=== PATIENT | female | born 1990 | race Caucasian/White ===

== ENCOUNTER 2020-08-22 13:08 | Outpatient (CLI) | payer SELFPAY ==
[2020-08-22] MEDS ORDERED: LACTATED RINGERS 1,000 ML ONE ×2 (13:15→14:30)
[2020-08-22] MEDS ORDERED: fentaNYL 100 MCG/2 ML INJ IV ONE ×2 (13:15→14:29)
[2020-08-22] MEDS ORDERED: ONDANSETRON 4 MG/2 ML INJ IV PRN ×2 (13:16→15:22)
[2020-08-22] MEDS ORDERED: LACTATED RINGERS 1,000 ML IV SCH ×2 (14:45→15:15)
[2020-08-22] MEDS ORDERED: fentaNYL 100 MCG/2 ML INJ IV PRN (15:11)
[2020-08-22] MEDS ORDERED: LIDOCAINE (2%) 20 MG/1 ML VIAL 20 ML MDV INFILTRATI ONE (15:11)
[2020-08-22] MEDS ORDERED: NalbUPHINE 10 MG/1 ML INJ IV PRN (15:11)
[2020-08-22] MEDS ORDERED: MINERAL OIL 30 ML ORAL LIQD PO PRN (15:11)
[2020-08-22] MEDS ORDERED: NALOXONE 0.4 MG/1 ML INJ IV PRN ×2 (15:21→15:22)
[2020-08-22] MEDS ORDERED: HYDROmorphone/NS 6 MG/30 ML PCA INJ IV SCH (16:00)
[2020-08-22] MEDS ORDERED: OXYTOCIN DRIP 30 UNITS/500 ML BAG IV SCH (16:00)
[2020-08-22] MEDS ORDERED: FENTANYL IV SCH (16:00)
--- NOTE | 2020-08-22 16:35 | Ultrasound Report ---
ULTRASOUND RENAL INDICATION: with right flank pain. COMPARISON: No relevant prior imaging study available. FINDINGS: RIGHT KIDNEY: Size: 12.0 x 5.7 cm. Echogenicity: Normal. Cortical thickness: Normal, 1.8 cm. Hydronephrosis: Mild. Cyst or mass: None. Stones: None. LEFT KIDNEY: Size: 11.7 x 6.4 cm. Echogenicity: Normal. Cortical thickness: Normal, 2.1 cm. Hydronephrosis: None. Cyst or mass: None. Stones: None. Urinary Bladder: No significant abnormality. Free Fluid: None. Additional Findings: None. IMPRESSION 1. Mild right hydronephrosis without visualization of an obstructive stone. This finding could be due to the patient's . 2. No significant sonographic abnormality of the left kidney. Signer Name: Bryan Vazquez MD Signed: 08/22/2020 4:31 PM Workstation Name: [id number]
--- NOTE | 2020-08-22 16:38 | Ultrasound Report ---
ULTRASOUND OBSTETRIC LIMITED INDICATION / CLINICAL INFORMATION: Evaluate amniotic fluid index and presentation as well as placenta. COMPARISON: None available. FINDINGS: AMNIOTIC FLUID INDEX (cm) = 14.4 PRESENTATION: Cephalic. A presenting hand is seen near the baby's head on this study. HEART RATE (beats per minute): 143 ADDITIONAL FINDINGS: The placenta is grade 1 and located anteriorly with an expected appearance. IMPRESSION: Single live intrauterine as above. Signer Name: Bryan Vazquez MD Signed: 08/22/2020 4:33 PM Workstation Name: [id number]
[2020-08-22 18:23] LABS: Basophils % (Auto) 0.2 % (0.0-1.8); Eosinophils % (Auto) 0.1 % (0.0-4.3); Hematocrit 37.4 % (30.3-42.9); Hemoglobin 12.7 gm/dl (10.1-14.3); Lymphocytes # (Auto) 1.4 K/mm3 (1.2-5.4); Lymphocytes % (Auto) 13.9 % (13.4-35.0); Mean Corpuscular HGB Conc 34 % (30-34); Mean Corpuscular Volume 90 fl (79-97); Monocytes # (Auto) 0.3 K/mm3 (0.0-0.8); Monocytes % (Auto) 2.5 % (0.0-7.3); Platelet Count 179 K/mm3 (140-440); Red Blood Count 4.14 M/mm3 (3.65-5.03); Red Cell Distribution Width 13.5 % (13.2-15.2)
[2020-08-22 18:37] LABS: Bilirubin,Urine NEG (Negative); Blood,Urine LG (Negative); Color,Urine Yellow (Yellow); Mucus,Urine FEW /HPF; Protein,Urine <15 mg/dL mg/dL (Negative); Urobilinogen,Urine < 2.0 mg/dL (<2.0)
[2020-08-22 18:45] LABS: Alanine Aminotransferase 16 units/L (7-56); Albumin 3.3 g/dL (3.9-5); Blood Urea Nitrogen 6 mg/dL (7-17); Calcium 9.4 mg/dL (8.4-10.2); Hemolysis Index 4
[2020-08-22 18:50] LABS: BUN/Creatinine Ratio 20
[2020-08-22 19:28] VITALS: BP 108/66
== END 2020-08-22 21:06 | disposition home or self-care (01) ==
LOC: LD 13:08 → TRG 13:08 → APU 13:09 → TRG 21:06
PROVIDERS: ATTEND Obstetrics & Gynecology
DX: O99.891 Other specified diseases and conditions complicating pregnancy (principal); N13.30 Unspecified hydronephrosis; O47.03 False labor before 37 completed weeks of gestation, third trimester; Z3A.30 30 weeks gestation of pregnancy
CPT/HCPCS: 36415; 59025; 76770; 76815; 80053; 81001; 85025; 86850; 86900; 86901; 96374; 96375; 96376; J2405; J3010; J7120; 96360; 96361; J1170

== ENCOUNTER 2020-10-09 11:11 | Outpatient (CLI) | payer MEDICAID, OTHER ==
[2020-10-09] MEDS ORDERED: LACTATED RINGERS 1,000 ML IV ONE ×2 (13:26→13:30)
[2020-10-09] MEDS ORDERED: TERBUTALINE 1 MG/1 ML INJ SUB-Q ONE (13:30)
[2020-10-09 14:56] VITALS: BP 112/71
== END 2020-10-09 15:37 | disposition home or self-care (01) ==
LOC: TRG 11:11 → APU 11:12 → TRG 15:37
PROVIDERS: ATTEND Obstetrics & Gynecology
DX: O26.853 Spotting complicating pregnancy, third trimester (principal); O47.03 False labor before 37 completed weeks of gestation, third trimester; Z3A.37 37 weeks gestation of pregnancy
CPT/HCPCS: 59025; 96360; 96361; 96372; J3105; J7120

== ENCOUNTER 2022-02-14 04:13 | Emergency (ER) | payer MEDICAID ==
[2022-02-14 04:41] LABS: Basophils % (Auto) 0.1 % (0.0-1.8); Eosinophils # (Auto) 0.2 K/mm3 (0.0-0.4); Hematocrit 40.7 % (30.3-42.9); Hemoglobin 13.4 gm/dl (10.1-14.3); Lymphocytes # (Auto) 2.6 K/mm3 (1.2-5.4); Lymphocytes % (Auto) 25.2 % (13.4-35.0); Mean Corpuscular HGB Conc 33 % (30-34); Mean Corpuscular Volume 84 fl (79-97); Monocytes # (Auto) 0.6 K/mm3 (0.0-0.8); Monocytes % (Auto) 5.8 % (0.0-7.3); Platelet Count 255 K/mm3 (140-440); Red Blood Count 4.82 M/mm3 (3.65-5.03); Red Cell Distribution Width 14.5 % (13.2-15.2)
[2022-02-14 04:59] LABS: Alanine Aminotransferase 21 units/L (7-56); Albumin 4.5 g/dL (3.9-5); Blood Urea Nitrogen 14 mg/dL (7-17); Hemolysis Index 8
[2022-02-14 05:35] LABS: BUN/Creatinine Ratio 28
[2022-02-14] MEDS ORDERED: MAGNESIUM HYDROXIDE (MOM) ORAL LIQD UDC PO ONE (10:05)
[2022-02-14 10:32] LABS: Mucus,Urine FEW /HPF
[2022-02-14 10:37] LABS: Color,Urine Yellow (Yellow)
--- NOTE | 2022-02-14 11:08 | Ultrasound Report ---
LIMITED RUQ ABDOMINAL ULTRASOUND INDICATION: RUQ pain. COMPARISON: No relevant prior imaging study available. FINDINGS: Pancreas: Visualized portions show no significant abnormality. Abdominal Aorta: No significant abnormality. IVC: No significant abnormality. Liver: The liver measures 15.4 cm in length. The liver parenchyma is echogenic consistent with steat osis. Normal hepatopedal blood flow in the main portal vein. Gallbladder: No significant abnormality. Bile ducts: No significant abnormality. Common bile duct measures 4 mm. Right kidney: No significant abnormality visualized. Free fluid: None. Additional Findings: None. IMPRESSION: Hepatic steatosis. Signer Name: Brandon Hdz Jr, MD Signed: 02/14/2022 11:03 AM Workstation Name: [id number]
--- NOTE | 2022-02-14 12:09 | Emergency Department Report ---
ED Abdominal Pain HPI - General Chief Complaint: Abdominal Pain Stated Complaint: stomach pain PUI?: No Time Seen by Provider: 02/14/22 09:08 Source: patient Mode of arrival: Ambulatory Limitations: No Limitations - History of Present Illness Initial Comments: Patient is a 31-year-old female presents complaining of intermittent epigastric and right upper quadrant pain for several weeks. This episode started yesterday and radiates to the right flank area. She has had some nausea and loose stools. She does state the pain is worse after a fatty meal. Denies fevers chills or vomiting. Severity scale (0 -10): 8 Associated Symptoms: nausea, diarrhea. denies: vomiting, fever, chills, constipation, dysuria, hematemesis, hematochezia, melena, hematuria, anorexia, syncope - Related Data Previous Rx's Medication Instructions Recorded Last Taken Type Ferrous Sulfate [Feosol 325 MG tab] 325 mg PO BID #60 tablet 11/08/15 Unknown Rx HYDROcodone/APAP 5-325 [Brinson 1 each PO Q6HR PRN #30 tablet 11/08/15 Unknown Rx 5/325] Ibuprofen [Motrin] 800 mg PO Q8HR PRN #30 tablet 11/08/15 Unknown Rx Vit Calc,Iron,Folic 1 each PO DAILY #30 tablet 11/08/15 Unknown Rx [ Vitamins] Omeprazole 20 mg PO DAILY #30 tab 02/14/22 Unknown Rx Allergies Allergy/AdvReac Type Severity Reaction Status Date / Time No Known Allergies Allergy Verified 11/07/15 15:34 ED Review of Systems ROS: Stated complaint: SEVERE STOMACH PAIN Other details as noted in HPI Constitutional: denies: chills, fever Eyes: denies: eye pain, eye discharge, vision change ENT: denies: ear pain, throat pain Respiratory: denies: cough, shortness of breath, wheezing Cardiovascular: denies: chest pain, palpitations Endocrine: no symptoms reported Gastrointestinal: as per HPI Genitourinary: denies: urgency, dysuria, discharge Musculoskeletal: denies: back pain, joint swelling, arthralgia Skin: denies: rash, lesions Neurological: denies: headache, weakness, paresthesias Psychiatric: denies: anxiety, depression Hematological/Lymphatic: denies: easy bleeding, easy bruising ED Past Medical Hx - Past Medical History Previous Medical History?: No Hx Hypertension: No Hx Congestive Heart Failure: No Hx Diabetes: No Hx Deep Vein Thrombosis: No Hx Renal Disease: No Hx Sickle Cell Disease: No Hx Seizures: No Hx Asthma: No Hx COPD: No Hx HIV: No - Surgical History Past Surgical History?: No - Social History Smoking Status: Never Smoker - Medications Home Medications: Home Medications Medication Instructions Recorded Confirmed Last Taken Type Ferrous Sulfate [Feosol 325 MG tab] 325 mg PO BID #60 tablet 11/08/15 Unknown Rx HYDROcodone/APAP 5-325 [Brinson 1 each PO Q6HR PRN #30 tablet 11/08/15 Unknown Rx 5/325] Ibuprofen [Motrin] 800 mg PO Q8HR PRN #30 tablet 11/08/15 Unknown Rx Vit Calc,Iron,Folic 1 each PO DAILY #30 tablet 11/08/15 Unknown Rx [ Vitamins] Omeprazole 20 mg PO DAILY #30 tab 02/14/22 Unknown Rx ED Physical Exam - General Limitations: No Limitations General appearance: alert, in no apparent distress - Head Head exam: Present: atraumatic, normocephalic - Eye Eye exam: Present: normal appearance - ENT ENT exam: Present: mucous membranes moist - Neck Neck exam: Present: normal inspection - Respiratory Respiratory exam: Present: normal lung sounds bilaterally. Absent: respiratory distress - Cardiovascular Cardiovascular Exam: Present: regular rate, normal rhythm. Absent: systolic murmur, diastolic murmur, rubs, gallop - GI/Abdominal GI/Abdominal exam: Present: soft, tenderness (Right upper quadrant with positive Garcia's), normal bowel sounds. Absent: distended, rebound, rigid, organomegaly, bruit - Extremities Exam Extremities exam: Present: normal inspection - Back Exam Back exam: Present: normal inspection - Neurological Exam Neurological exam: Present: alert, oriented X3 - Psychiatric Psychiatric exam: Present: normal affect, normal mood - Skin Skin exam: Present: warm, dry, intact, normal color. Absent: rash ED Course Vital Signs 02/14/22 02/14/22 04:19 12:41 Temperature 97.8 F 98.4 F Pulse Rate 92 H 83 Respiratory 15 18 Rate Blood Pressure 112/61 97/62 [Left] O2 Sat by Pulse 100 99 Oximetry - Reevaluation(s) Reevaluation #1: 02/14/22 12:12 Patient abdominal pain resolved with milk of mag. Abdominal exams throughout stay are improved. She remains non-toxic appearing and comfortable on discharge. 02/14/22 20:57 ED Medical Decision Making - Lab Data Result diagrams: 02/14/22 04:24 02/14/22 04:24 - Radiology Data Radiology results: report reviewed This is a 31-year-old female with right upper quadrant abdominal pain. Exam is benign. Blood work is normal. Ultrasound shows fatty liver no gallstones. Patient had improvement with milk of mag. Will provide primary care and gastroenterology follow-up as well as omeprazole. Ultrasound Report Signed Patient: ADAM GUNTER R#: [id number] : 1990 Acct:[id number] Age/Sex: 31 / F ADM Date: 02/14/22 Loc: ED Attending Dr: Ordering Physician: LUC CORREA Date of Service: 02/14/22 Procedure(s): US abdomen limited Accession Number(s): [id number] cc: LUC CORREA LIMITED RUQ ABDOMINAL ULTRASOUND INDICATION: RUQ pain. COMPARISON: No relevant prior imaging study available. FINDINGS: Pancreas: Visualized portions show no significant abnormality. Abdominal Aorta: No significant abnormality. IVC: No significant abnormality. Liver: The liver measures 15.4 cm in length. The liver parenchyma is echogenic consistent with steatosis. Normal hepatopedal blood flow in the main portal vein. Gallbladder: No significant abnormality. Bile ducts: No significant abnormality. Common bile duct measures 4 mm. Right kidney: No significant abnormality visualized. Free fluid: None. Additional Findings: None. IMPRESSION: Hepatic steatosis. Signer Name: Brandon Hdz Jr, MD Signed: 02/14/2022 11:03 AM Workstation Name: [id number] Transcribed By: TTR Dictated By: BRANDON HDZ JR, MD Electronically Authenticated By: BRANDON HDZ JR, MD Signed Date/Time: 02/14/22 110 DD/ 110 TD/TT: - Medical Decision Making Patient is a 31-year-old female with right upper quadrant/epigastric pain intermittently for a month. Worse after fatty meals. Milk of mag helped with her pain. Serial abdominal exams remain benign/soft with epigastric and right upper quadrant tenderness. Ultrasound revealed fatty liver. Will give treat with omeprazole, low-fat meals and GI follow-up. Critical care attestation.: If time is entered above; I have spent that time in minutes in the direct care of this critically ill patient, excluding procedure time. ED Disposition Clinical Impression: RUQ abdominal pain Disposition: HOME / SELF CARE / HOMELESS Is pt being admited?: No Condition: Stable Instructions: Abdominal Pain, Adult, [id number], Pain Without a Known Cause, Abdominal Pain (ED) Additional Instructions: Omeprazole. Low-fat diet. Follow-up with newsagent and primary care. Return if worse. Return if fever vomiting or worse pain Prescriptions: Omeprazole 20 mg PO DAILY #30 tab Referrals: LISA SIMMONS MD [Staff Physician] - 3-5 Days MARYJO CALDWELL MD [Staff Physician] - 3-5 Days Forms: Work/School Release Form(ED) Time of Disposition: 12:16 Print Language: ESTONIAN
[2022-02-14 12:42] VITALS: BP 97/62
== END 2022-02-14 14:51 | disposition home or self-care (01) ==
LOC: ED 04:13
DX: R10.11 Right upper quadrant pain (principal); R10.13 Epigastric pain; Z79.899 Other long term (current) drug therapy
CPT/HCPCS: 36415; 76705; 80053; 81001; 83690; 84703; 85025; 99284